=== PATIENT | female | born 1940 | race Caucasian/White ===

== ENCOUNTER 2017-09-01 15:26 | Emergency (ER) | payer MEDICARE ==
[~2017-09-01] VITALS: Ht 165.1 cm; Wt 63.5 kg
[2017-09-01] MEDS ORDERED: ONDANSETRON 4 MG/2 ML VIAL IM ONE (16:00)
[2017-09-01] MEDS ORDERED: MORPHINE SULFATE 4 MG/1 ML DISP.SYRIN IM ONE (16:00)
[2017-09-01] MEDS ORDERED: ONDANSETRON 4 MG/2 ML VIAL ONE (16:11)
[2017-09-01] MEDS ORDERED: MORPHINE SULFATE 4 MG/1 ML DISP.SYRIN ONE (16:11)
--- NOTE | 2017-09-01 18:12 | NUR ---
Patient discharged to home in stable conditon. Written and verbal after care instructions given. Patient verbalizes understanding of instructions.PT WALKS IN STEADY GAIT. PT WITH DAUGHTER. PT NOT DRIVING
[2017-09-01 18:14] VITALS: BP 111/61
== END 2017-09-01 18:16 | disposition home or self-care (01) ==
LOC: ER 15:26
DX: M54.5 Low back pain (principal); M54.32 Sciatica, left side; N28.89 Other specified disorders of kidney and ureter
CPT/HCPCS: A4663; J2270; J2405

== ENCOUNTER 2020-02-08 02:08 | Emergency (ER) | payer MEDICARE, MEDICAID ==
[~2020-02-08] VITALS: Ht 149.9 cm; Wt 56.7 kg
--- NOTE | 2020-02-08 02:25 | NUR ---
Dr Dumas at bedside for MSE.
[2020-02-08] MEDS ORDERED: ALPRAZOLAM 0.25 MG TABLET PO ONE (02:30)
[2020-02-08] MEDS ORDERED: ALPRAZOLAM 0.25 MG TABLET ONE (02:33)
--- NOTE | 2020-02-08 02:38 | NUR ---
Pt refused COVID 19 testing after MD discussed quarantine. Denies any pertinent symptoms.
--- NOTE | 2020-02-08 02:39 | NUR ---
Pt refused Xanax 0.25mg due to side effects, would rather picker / packer from pharmacy and take at home. MD notified. Karol ELLSWORTH witnessed waste. Patient discharged to home in stable condition. Written and verbal after care instructions given. Patient verbalizes understanding of instructions. Stressed follow up or return to ER for worsening s/s. Ambulated out of ER in steady gait with caregiver/skid man.
[2020-02-08 02:41] VITALS: BP 140/80
== END 2020-02-08 02:42 | disposition home or self-care (01) ==
LOC: ER 02:10
DX: F41.9 Anxiety disorder, unspecified (principal); Z96.641 Presence of right artificial hip joint; R03.0 Elevated blood-pressure reading, without diagnosis of hypertension
CPT/HCPCS: A4663

== ENCOUNTER 2021-04-03 11:52 | Emergency (ER) | payer MEDICARE, MEDICAID ==
[~2021-04-03] VITALS: Ht 152.4 cm; Wt 59.0 kg
--- NOTE | 2021-04-03 11:58 | NUR ---
Patient brought in by 81 for a mechanical fall on 04/02/21, right knee swelling noted
--- NOTE | 2021-04-03 12:00 | NUR ---
at bedside for assessment
[2021-04-03] MEDS ORDERED: ACET-2605 PO (13:14)
[2021-04-03] MEDS ORDERED: NAPR500T6 PO (13:14)
[2021-04-03] MEDS ORDERED: IBUPROFEN 600 MG TABLET PO ONE (13:15)
--- NOTE | 2021-04-03 13:20 | NUR ---
Right knee reddy wrapped at this time, patient instructed to elevate right leg, take medications a prescribed, apply ice and follow up with PCP, Patient discharged to home in stable condition. Written and verbal after care instructions given. Patient wheeled via wheelchair to private car. Daughter noted driving patient home. Patient verbalizes understanding of instructions. Stressed follow up or return to ER for worsening s/s.
[2021-04-03] MEDS ORDERED: IBUPROFEN 600 MG TABLET ONE (13:25)
[2021-04-03 13:56] VITALS: BP 123/79
== END 2021-04-03 13:20 | disposition home or self-care (01) ==
LOC: ER 11:54
DX: S89.91XA Unspecified injury of right lower leg, initial encounter (principal); M25.461 Effusion, right knee; W18.30XA Fall on same level, unspecified, initial encounter; Y93.H2 Activity, gardening and landscaping; Y92.017 Garden or yard in single-family (private) house as the place of occurrence of the external cause; Z96.641 Presence of right artificial hip joint
CPT/HCPCS: A4663

== ENCOUNTER 2021-05-31 15:08 | Emergency (ER) | payer MEDICARE, MEDICAID ==
[~2021-05-31] VITALS: Ht 152.4 cm; Wt 59.0 kg
[~2021-05-31 15:08] MED LIST: ACET-2605 PO; NAPR500T6 PO
[2021-05-31 15:48] LABS: HEMATOCRIT 38.4 % (31.2-41.9); MEAN CORPUSCULAR HEMOGLOBIN 33.2 uug (24.7-32.8); PLATELET COUNT (AUTO) 279 K/uL (179-408)
[2021-05-31 15:52] LABS: *BILIRUBIN,URIN NEGATIVE (NEGATIVE); *BLOOD, URINE 2+ (NEGATIVE); *COLOR,URINE YELLOW (YELLOW); *KETONES,URINE NEGATIVE (NEGATIVE); *UROBILINOGEN,URINE 0.2 E.U./dl (NORMAL); LEUKOCYTE ESTERASE ,URINE 1+ (NEGATIVE); NITRITE, URINE NEGATIVE (NEGATIVE); UGLUCOSE NEGATIVE (NEGATIVE)
[2021-05-31 15:59] LABS: ALANINE AMINOTRANSFERASE 19 U/L (14-59); ALKALINE PHOSPHATASE 118 U/L (50-136); ASPARTATE AMINOTRANSFERASE 20 U/L (15-37); BILIRUBIN,DIRECT 0.1 mg/dL (0.0-0.2); BILIRUBIN,TOTAL 0.3 mg/dL (0.2-1.0); CARBON DIOXIDE 26 mmol/L (21-32); CHLORIDE 103 mmol/L (98-107); CREATININE 0.8 mg/dL (0.6-1.3); GLUCOSE 106 mg/dL (74-106); LIPASE 148 U/L (73-393); POTASSIUM 3.9 mmol/L (3.5-5.1); TOTAL PROTEIN, SERUM 7.6 g/dL (6.4-8.2); UREA NITROGEN, BLOOD 24 mg/dL (7-18)
[2021-05-31 16:01] LABS: *CLARITY,URINE SLIGHTLY HAZY (CLEAR)
[2021-05-31 16:02] LABS: BACTERIA,URINE FEW /HPF (NONE SEEN); SQUAMOUS EPITHELIAL CELL,UR FEW /HPF (NONE SEEN)
[2021-05-31] MEDS ORDERED: CEPH500T PO (17:13)
[2021-05-31] MEDS ORDERED: CEFTRIAXONE 1 G in IV DEXTROSE 5% 50 ML IV ONE (17:15)
[2021-05-31] MEDS ORDERED: CEFTRIAXONE /D5W 50ML IVPB **ER PYXIS IV ONE (17:25)
[2021-05-31 17:50] VITALS: BP 121/68
--- NOTE | 2021-05-31 17:50 | NUR ---
Patient discharged to home in stable condition. Written and verbal after care instructions given. Patient verbalizes understanding of instructions. Stressed follow up or return to ER for worsening s/s.PT WALKS IN STEADY GAIT, AXOX4.
== END 2021-05-31 17:51 | disposition home or self-care (01) ==
LOC: ER 15:08
DX: N30.00 Acute cystitis without hematuria (principal); R10.32 Left lower quadrant pain; Z96.641 Presence of right artificial hip joint; M46.05 Spinal enthesopathy, thoracolumbar region
CPT/HCPCS: 36415; 74176; 80048; 80076; 81001; 83690; 85025; 87086; 96365; 99284; J0696; A4663

== ENCOUNTER 2021-12-08 13:15 | Emergency (ER) | payer MEDICARE, BC ==
[~2021-12-08] VITALS: Ht 160 cm; Wt 59.0 kg
[~2021-12-08 13:15] MED LIST changes: +CEPH500T PO
--- NOTE | 2021-12-08 13:33 | NUR ---
Dr Luong at the bedside for MSE.
[2021-12-08] MEDS ORDERED: IBUPROFEN 600 MG TABLET ONE (13:43)
[2021-12-08] MEDS ORDERED: IBUPROFEN 600 MG TABLET PO ONE (13:45)
[2021-12-08 15:04] LABS: *BILIRUBIN,URIN NEGATIVE (NEGATIVE); *BLOOD, URINE 2+ (NEGATIVE); *CLARITY,URINE CLEAR (CLEAR); *COLOR,URINE YELLOW (YELLOW); *KETONES,URINE NEGATIVE (NEGATIVE); *UROBILINOGEN,URINE 0.2 E.U./dl (NORMAL); LEUKOCYTE ESTERASE ,URINE TRACE (NEGATIVE); NITRITE, URINE NEGATIVE (NEGATIVE); PH,URINE 5.5 (5.0-8.0); UGLUCOSE NEGATIVE (NEGATIVE)
--- NOTE | 2021-12-08 15:04 | NUR ---
Dr Luong spoke to Dr Andrade, Ortho surgeon.
[2021-12-08 15:31] VITALS: BP 121/59
--- NOTE | 2021-12-08 15:32 | NUR ---
Patient discharged to home in stable condition. Written and verbal after care instructions given. Patient verbalizes understanding of instructions. Stressed follow up or return to ER for worsening s/s.
[2021-12-08 17:07] LABS: BACTERIA,URINE FEW /HPF (NONE SEEN); SQUAMOUS EPITHELIAL CELL,UR FEW /HPF (NONE SEEN)
== END 2021-12-08 15:32 | disposition home or self-care (01) ==
LOC: ER 13:15
DX: S32.019A Unspecified fracture of first lumbar vertebra, initial encounter for closed fracture (principal); W18.39XA Other fall on same level, initial encounter; Y92.89 Other specified places as the place of occurrence of the external cause; Z96.641 Presence of right artificial hip joint
CPT/HCPCS: 72131; A4663

== ENCOUNTER 2024-02-27 09:31 | Emergency (ER) | payer MEDICARE, MEDICAID ==
[~2024-02-27] VITALS: Ht 152.4 cm; Wt 49.9 kg
[2024-02-27] MEDS ORDERED: NAPR-1009 PO (09:58)
[2024-02-27] MEDS ORDERED: CLOT15CR27 TP (09:58)
--- NOTE | 2024-02-27 10:05 | NUR ---
PT WAS EVALUATED BY DR BALDERRAMA. PT RECEIVED VERBAL DISCHARGE INSTRUCTIONS FROM DR BALDERRAMA AND WAS DISCHARGED HOME.
[2024-02-27 10:06] VITALS: BP 143/84; TEMP 98.2; O2SAT 98
== END 2024-02-27 10:07 | disposition home or self-care (01) ==
LOC: ER 09:31
DX: M79.675 Pain in left toe(s) (principal); Z98.890 Other specified postprocedural states; Z79.899 Other long term (current) drug therapy; Z60.2 Problems related to living alone
CPT/HCPCS: A4606; A4663